=== PATIENT | female | born 2000 | race Caucasian/White ===

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

== ENCOUNTER 2024-04-29 18:42 | Emergency (ER) | payer OTHER, MEDICAID, SELFPAY ==
[2024-04-29] VITALS (14 sets, daily range): BP systolic 113–136; BP diastolic 59–107; PULSE 85–143; RESP 9–30; TEMP 36.4–36.9; O2SAT 92–97; BMI 18.1
--- NOTE | 2024-04-29 18:52 | EKG12_ITS ---
Test Reason : SOB Blood Pressure : / mmHG Vent. Rate : 088 BPM Atrial Rate : 088 BPM P-R Int : 120 ms QRS Dur : 084 ms QT Int : 358 ms P-R-T Axes : 053 085 008 degrees QTc Int : 433 ms Normal sinus rhythm Normal ECG Confirmed by JOHNNY HORTON, JIM ([id number]), book editor PRESTON SETHI ([id number]) on 04/30/2024 10:26:12 AM Referred By: Confirmed By:JIM TURNER MD
--- NOTE | 2024-04-29 18:52 | RAD_ITS ---
STUDY: X-RAY CHEST REASON FOR EXAM: Female, 23 years old. SOB TECHNIQUE: Single AP portable view of the chest. COMPARISON: None. FINDINGS: The lungs are clear and expanded. There is no demonstrated pleural abnormality. Normal size heart. Normal mediastinum and zeyad. Normal visualized pulmonary arteries. Normal visualized aortic arch and descending thoracic aorta. Normal visualized thoracic spine. Normal visualized ribs, clavicles, and shoulders. There is no demonstrated abnormality of the visualized soft tissue structures of the upper abdomen. RAD/Chest 1 View (Portable) IMPRESSION: Normal x-ray examination of the chest. Electronically Signed: Ceferino Armenta MD at 19:32 EDT ,
--- NOTE | 2024-04-29 19:23 | EDS_ITS ---
HPI History of Present Illness Chief Complaint: Shortness of Breath Informant: patient Onset/Context/Timing Onset: Month(s) (2) Context: gradual Timing: Continuous Quality: Positive for Dyspnea on exertion and Orthopnea Worsened by: Exertion and Lying flat Relieved by: Nothing Associated Symptoms cough; Negative for rhinorrhea, post nasal drip, ear pain, fever, sore throat, chills, sweats, clear sputum, white sputum, yellow sputum or green sputum Chest Pain: Positive for Dull Narrative Narrative: Patient presents with shortness of breath that has been getting progressively worse over the past 2 months. Patient states it has gotten worse over the past few days. Patient states it came on gradually. Patient states it is constant. Patient states it is worse with any exertion and with laying flat. Patient admits to a cough but denies any sputum production. Patient admits to some substernal pain in her chest. Patient describes it as feeling bruised. Patient denies any fevers or chills. Patient denies any sore throat or rhinorrhea. Patient states that yesterday she had an episode where her vision became blurry and she was seeing different colors. Patient states she felt lightheaded at that time and felt like she was going to pass out at that time. PFSH PFSH Medical History no medical history no medical history Home Medications ?Medication ?Instructions ?Recorded ?Last Taken ?Type multivitamin (Daily Multi-Vitamin 1 tab PO DAILY 09/20/21 Unknown History tablet) copper 380 square mm intrauterine 1 device intrauterine ONCE 11/21/21 Unknown History device (ParaGard T 380A) escitalopram oxalate 20 mg tablet 20 mg PO DAILY #90 tabs 12/10/22 Unknown Rx albuterol sulfate 90 mcg/actuation 2 puff inhalation Q4H PRN PRN 04/29/24 Unknown Rx aerosol inhaler (Ventolin HFA) Wheezing ##1 Allergy/AdvReac Type Severity Reaction Status Date / Time No Known Allergies Allergy Verified 04/29/24 18:45 Family History Other Heart disease Hypertension Thyroid disorder Surgical History no surgical history no surgical history Social History Smoking Status: Current every day smoker tobacco type: e-cigarettes alcohol intake: never substance use type: does not use ROS ROS ED Constitutional Constitutional ED: Denies chills or fever(s) Eyes Eyes: Reports blurry vision and change in vision ENT ENT ED: Denies rhinorrhea or sore throat Cardiovascular Cardiovascular: Reports chest pain; Denies palpitations Respiratory/Chest Respiratory/Chest: Reports cough and dyspnea Gastrointestinal Gastrointestinal: Denies nausea or vomiting Genitourinary Genitourinary ED: Denies dysuria or hematuria Musculoskeletal Musculoskeletal: Denies back pain or neck pain Integumentary Denies abscess or rash Neurologic Neurologic: Reports headache(s); Denies weakness Allergic/Immunologic Allergic/Immunologic ED: Denies mouth swelling or urticaria EXAM Physical Exam Const Vital Signs: 04/29/24 18:43 04/29/24 18:44 04/29/24 19:29 Temperature 97.6 F L 97.6 F L Temperature Source Temporal Temporal Pulse Rate 143 H 143 H Respiratory Rate 28 H 28 H Respiratory Effort Respiratory Depth Respiratory Pattern Blood Pressure 136/107 H 136/107 H Blood Pressure Mean 116 116 Pulse Ox 92 92 93 Oxygen Delivery Method Room Air Room Air Room Air 04/29/24 19:29 04/29/24 19:29 04/29/24 19:44 Temperature 98.4 F Temperature Source Temporal Pulse Rate 89 Respiratory Rate 30 H 28 H Respiratory Effort Short of Breath Labored Respiratory Depth Shallow Respiratory Pattern Tachypnea Blood Pressure 119/60 Blood Pressure Mean 79 Pulse Ox 93 96 Oxygen Delivery Method Room Air Room Air Room Air 04/29/24 20:00 04/29/24 20:15 04/29/24 20:30 Temperature 97.8 F Temperature Source Temporal Pulse Rate 87 Respiratory Rate 28 H 9 L 17 Respiratory Effort Respiratory Depth Respiratory Pattern Blood Pressure 122/79 H 116/59 L 123/80 H Blood Pressure Mean 89 75 93 Pulse Ox 94 95 96 Oxygen Delivery Method 04/29/24 20:45 04/29/24 21:00 04/29/24 21:15 Temperature Temperature Source Pulse Rate 85 Respiratory Rate 20 H 18 17 Respiratory Effort Respiratory Depth Respiratory Pattern Blood Pressure 115/75 119/67 113/68 Blood Pressure Mean 85 83 80 Pulse Ox 95 97 95 Oxygen Delivery Method 04/29/24 21:30 04/29/24 21:45 04/29/24 22:00 Temperature Temperature Source Pulse Rate Respiratory Rate 22 H 22 H Respiratory Effort Respiratory Depth Respiratory Pattern Blood Pressure 124/68 H 120/84 H 115/68 Blood Pressure Mean 82 95 83 Pulse Ox 96 92 Oxygen Delivery Method Positive well nourished and well developed General Appearance ED: well developed and NAD HEENT Reports moist mucous membranes Neck supple, no meningeal signs and no JVD Resp normal respiratory effort Auscultation: wheezes throughout Cardio regular rate and regular rhythm GI non-tender and non-distended Palpation: soft Neuro oriented x3, CN's II-XII intact bilaterally and no sensory deficits noted Germán Coma Scale: document GCS findings Spontaneous Obeys Commands Oriented 15 Sensorium / Orientation: alert Speech: speech normal Motor Exam: strength 5/5 throughout Psych mental status grossly normal MDM MDM MDM Narrative Medical decision making narrative: Differential diagnosis includes pneumonia, asthma, reactive airway disease, viral illness, pulmonary embolism, and electrolyte abnormality. EKG will be obtained to assess for cardiac dysrhythmia and cardiac ischemia. Chest x-ray will be obtained to assess for pneumonia and pneumothorax. CBC will be obtained to assess for leukocytosis and anemia. Basic metabolic profile will be obtained to assess for electrolyte abnormality and renal function. D-dimer will be obtained to assess for pulmonary embolism. Lab Data Attestation: I reviewed the patient's lab results. Lab results narrative: CBC was reviewed. There is a slight leukocytosis of 15.9. The remainder is within normal limits. D-dimer was reviewed and was negative. Basic metabolic profile was reviewed and was within normal limits. Labs: Laboratory Results - last 24 hr 04/29/24 19:25 WBC 15.9 H RBC 5.04 Hgb 14.7 Hct 42.3 MCV 83.9 MCH 29.2 MCHC 34.8 RDW Std Deviation 35.2 RDW Coeff of Bear 11.6 Plt Count 367 MPV 9.3 Immature Gran % (Auto) 0.200 Neut % (Auto) 44.9 L Lymph % (Auto) 15.1 L [place] % (Auto) 7.8 Eos % (Auto) 30.9 H Baso % (Auto) 1.1 H Absolute Neuts (auto) 7.1 Absolute Lymphs (auto) 2.39 Nucleated RBC % 0 Differential Comment SCANNED D-Dimer Quant (PE/DVT) 0.33 Sodium 137 Potassium 3.8 Chloride 107 Carbon Dioxide 24.0 Anion Gap 6 BUN 12 Creatinine 0.85 Estim Creat Clear Calc 76.85 Est GFR (MDRD) Af Amer 109 Est GFR (MDRD) Non-Af 90 BUN/Creatinine Ratio 14.2 Glucose 103 Calcium 9.2 Radiography Chest X-Ray - ED: 1 View, Read by ED Physician, Read by Radiologist and No Acute Disease Diagnostic Testing: Clinical Impression(s) from Imaging Studies Chest X-Ray 04/29/24 18:52 IMPRESSION: Normal x-ray examination of the chest. Electronically Signed: Ceferino Armenta MD at 19:32 EDT , Portable 1 view chest x-ray was obtained. On my independent interpretation, lung ruiz are clear. There is normal cardiac silhouette. Bony thorax is normal. There is no acute process noted. Radiologist also interpreted the x- ray and agrees. EKG Initial EKG: Attestation: I personally reviewed and interpreted this EKG as follows: Interpretation: Sinus Rhythm (88) and No Acute Injury Pattern Comments: EKG was obtained. On my independent interpretation, it showed a normal sinus rhythm with a rate of 88. ID interval, QRS interval, and QTc intervals were all normal. [place] was normal. There are no acute ST or T wave changes. Prior EKG tracings: not available for review Prior: No Prior Treatment and Re-Evaluation :: Nicotine cessation was discussed. Patient was given a DuoNeb aerosol here. Patient was given an albuterol aerosol after that. Patient was advised of her findings. Patient had some faint expiratory wheezes on reevaluation. Patient was feeling better on reevaluation. Patient was given a prescription for an albuterol inhaler. Patient was instructed to follow-up with her primary care physician in 5 to 7 days. Patient understood and was agreeable with the plan. All questions were answered. Discharge Plan Triage Chief Complaint: Shortness of Breath ED Provider: Tiburcio Hughes Dx/Rx/DC Orders Clinical Impression: Asthma, Nicotine vapor product user Instructions: ED Asthma, Acute (Adult) Prescriptions: New albuterol sulfate [Ventolin HFA] 90 mcg/actuation HFA aerosol inhaler 2 puff inhalation Q4H PRN PRN (Reason: Wheezing) Qty: 1 0RF No Action multivitamin [Daily Multi-Vitamin] Tablet 1 tab PO DAILY ParaGard T 380A 380 square mm intrauterine device 1 device intrauterine ONCE Rx Instructions: as a single dose escitalopram oxalate 20 mg tablet 20 mg PO DAILY Qty: 90 1RF Primary Care Provider: Care Physician,No Primary Referrals: Gaby Dorsey MD [Med Staff - Hospice Patient Care Secretary] - 5-7 Days Print Language: Maltese Disposition Disposition: Home, Self Care
[2024-04-29 19:39] LABS: Absolute Lymphocyte Count 2.39 X10^3/uL (0.83-4.51); Absolute Neutrophil Count 7.1 X10^3/uL (2.0-7.7); Basophil# 0.18 X10^3/uL; Basophil% 1.1 % (0-1); Eosinophils% 30.9 % (0-5); Hematocrit 42.3 % (37-47); Hemoglobin 14.7 g/dL (12.0-15.0); Lymphocyte # 2.39 X10^3/ul (0.83-4.51); Lymphocyte % 15.1 % (19-41); Mean Corp Hgb Conc 34.8 g/dL (32-36); Mean Corpuscular Hgb 29.2 pg (27.0-32.0); Mean Corpuscular Volume 83.9 fL (81-99); Mean Platelet Vol. 9.3 fl (6.2-12.0); Monocyte# 1.23 X10^3/uL; Monocyte% 7.8 % (0-10); NRBC Flagged by Analyzer 0 % (0-5); Neutrophil # 7.12 X10^3/uL (2.7-7.7); Neutrophil % 44.9 % (47-70); POSITIVE DIFFERENTIAL YES; Platelet Count 367 K/mm3 (150-450); RBC Distribution Width CV 11.6 % (11.6-14.6); RBC Distribution Width SD 35.2 fl (35.1-43.9); Red Blood Count 5.04 M/mm3 (4.2-5.4); White Blood Count 15.9 K/mm3 (4.4-11.0)
[2024-04-29 19:51] LABS: Anion Gap 6 (5-15); BUN 12 mg/dL (7-18); BUN/Creat Ratio 14.2 RATIO (10-20); Calcium,Total 9.2 mg/dL (8.5-10.1); Chloride 107 mmol/L (98-107); Creatinine, Serum 0.85 mg/dL (0.55-1.02); EST Glomerular Filtration Rate 90 mL/min (>60); Est Glom Filt Rate - Afr Amer 109 mL/min (>60); Estimated Creatinine Clearance 76.85 ml/min; Glucose 103 mg/dL (74-106); Potassium 3.8 mmol/L (3.5-5.1); Sodium Level 137 mmol/L (136-145)
[2024-04-29 20:02] LABS: Differential Indicated SCAN CRITERIA MET
[2024-04-29 20:04] LABS: Differential Comment SCANNED
[2024-04-29 20:12] LABS: D-Dimer Quantitative (DVT/PE) 0.33 FEU/ug/m (0.27-0.49)
[2024-04-29] MEDS: Albuterol 2.5 MG/3 ML VIAL.NEB. INHALATION (20:12)
[2024-04-29] MEDS: Ipratropium/Albuterol Sulfate 3 ML AMPUL.NEB INHALATION (20:12)
== END 2024-04-29 22:21 | disposition home or self-care (01) ==
PROVIDERS: Emergency Provider Emergency Medicine; Visit Provider Emergency Medicine
DX: J45.909 Unspecified asthma, uncomplicated (principal); R07.2 Precordial pain; R06.01 Orthopnea; F17.290 Nicotine dependence, other tobacco product, uncomplicated
CPT/HCPCS: 71045; 80048; 85025; 85379; 93005; 99283; A4216